=== PATIENT | female | born 1970 | race Caucasian/White ===

== ENCOUNTER 2019-07-16 08:33 | Day surgery (SDC) | payer OTHER ==
[~2019-07-16] VITALS: Ht 167.6 cm; Wt 72.6 kg
[2019-07-16] MEDS ORDERED: LIDOCAINE 2% 100 MG/5 ML UJET TP ONE (10:35)
[2019-07-16] MEDS ORDERED: MIDAZOLAM 2 MG/2 ML VIAL ONE (10:35)
[2019-07-16] MEDS ORDERED: fentaNYL 0.05 MG/ML VIAL ONE (10:35)
[2019-07-16] MEDS ORDERED: MIDAZOLAM 2 MG/2 ML VIAL IVP ONE (10:43)
[2019-07-16] MEDS ORDERED: fentaNYL 0.05 MG/ML VIAL IVP ONE (10:45)
== END 2019-07-16 12:15 | disposition home or self-care (01) ==
LOC: MOR 08:33 → MMU 08:33 → MOR 12:15
PROVIDERS: ATTEND Internal Medicine Gastroenterology
DX: Z12.11 Encounter for screening for malignant neoplasm of colon (principal); D12.5 Benign neoplasm of sigmoid colon; D12.4 Benign neoplasm of descending colon; K21.0 Gastro-esophageal reflux disease with esophagitis; K57.30 Diverticulosis of large intestine without perforation or abscess without bleeding; F17.210 Nicotine dependence, cigarettes, uncomplicated
CPT/HCPCS: 43235; 45380; J2250; J3010

== ENCOUNTER 2022-08-22 08:44 | Emergency (ER) | payer OTHER ==
[~2022-08-22] VITALS: Ht 167.6 cm; Wt 72.6 kg
[2022-08-22 08:51] VITALS: BP 110/73
[2022-08-22] MEDS ORDERED: KETOROLAC 30 MG/ML VIAL IM ONE (09:10)
--- NOTE | 2022-08-22 09:13 | NUR ---
Covid and flu swabs dropped off at lab.
[2022-08-22] MEDS ORDERED: IBUP-2213 PO (10:27)
[2022-08-22] MEDS ORDERED: AMOX-1230 PO (10:27)
[2022-08-22 10:38] VITALS: BP 110/73
--- NOTE | 2022-08-22 10:38 | NUR ---
Patient discharged with v/s stable. Written and verbal after care instructions given and explained. Patient verbalized understanding. Ambulatory with steady gait. All questions addressed prior to discharge. Advised to follow up with PMD.
== END 2022-08-22 10:38 | disposition home or self-care (01) ==
LOC: MED 08:44
DX: J18.9 Pneumonia, unspecified organism (principal); J11.1 Influenza due to unidentified influenza virus with other respiratory manifestations; Z20.822 Contact with and (suspected) exposure to COVID-19; F17.210 Nicotine dependence, cigarettes, uncomplicated; Z79.1 Long term (current) use of non-steroidal anti-inflammatories (NSAID); Z79.2 Long term (current) use of antibiotics
CPT/HCPCS: 71045; 87426; 87804; 93005; 96372; 99285; J1885

== ENCOUNTER 2022-09-16 10:48 | Emergency (ER) | payer OTHER ==
[~2022-09-16] VITALS: Ht 167.6 cm; Wt 73.0 kg
[~2022-09-16 10:48] MED LIST: AMOX-1230 PO; IBUP-2213 PO
[2022-09-16 11:00] VITALS: BP 113/75
--- NOTE | 2022-09-16 11:06 | NUR ---
51/F WALKED IN C/O DYSURIA AND FREQUENCY X 1 WK. PT DENIES HEMATURIA, FLANK PAIN OR FEVER. AFEBRILE AT TRIAGE.AAO4, AMBULATORY, VITALS STABLE. Denies PMH NKA
[2022-09-16 11:22] LABS: BILIRUBIN,URINE NEGATIVE (NEGATIVE); BLOOD, URINE 1+ (NEGATIVE); COLOR,URINE YELLOW (YELLOW); LEUKOCYTE ESTERASE ,URINE 2+ (NEGATIVE); NITRITE, URINE NEGATIVE (NEGATIVE); PH,URINE 6.5 (5.0-9.0); UGLUCOSE NEGATIVE (NEGATIVE)
[2022-09-16 11:25] LABS: APPEARANCE,URINE HAZY (CLEAR)
[2022-09-16] MEDS ORDERED: NITR100C7 PO (11:58)
[2022-09-16] MEDS ORDERED: IBUP-1842 PO (11:58)
== END 2022-09-16 12:08 | disposition home or self-care (01) ==
LOC: MED 10:48
DX: N39.0 Urinary tract infection, site not specified (principal); Z79.899 Other long term (current) drug therapy; Z90.710 Acquired absence of both cervix and uterus
CPT/HCPCS: 81001; 87086; 99283

== ENCOUNTER 2022-09-26 08:16 | Emergency (ER) | payer OTHER ==
[~2022-09-26] VITALS: Ht 167.6 cm; Wt 74.8 kg
[~2022-09-26 08:16] MED LIST changes: +IBUP-1842 PO; +NITR100C7 PO
[2022-09-26 08:29] VITALS: BP 112/52
--- NOTE | 2022-09-26 08:45 | NUR ---
MD at bedside to evaluate the patient
[2022-09-26] MEDS ORDERED: KETOROLAC 60 MG/2 ML VIAL IM ONE (08:50)
[2022-09-26 09:00] LABS: BILIRUBIN,URINE NEGATIVE (NEGATIVE); BLOOD, URINE 3+ (NEGATIVE); LEUKOCYTE ESTERASE ,URINE NEGATIVE (NEGATIVE); NITRITE, URINE NEGATIVE (NEGATIVE); PH,URINE 6.5 (5.0-9.0); UGLUCOSE NEGATIVE (NEGATIVE)
[2022-09-26 09:07] LABS: COLOR,URINE SLIGHT BLOODY (YELLOW)
[2022-09-26 09:08] LABS: APPEARANCE,URINE SLIGHTLY CLOUDY (CLEAR)
[2022-09-26 09:41] LABS: RBC,URINE 11-20 (MOD) /HPF (0-5); WBC,URINE 0-5 /HPF (0-5)
[2022-09-26] MEDS ORDERED: IBUP-2213 PO (09:54)
[2022-09-26] MEDS ORDERED: FLUC150T PO (09:54)
--- NOTE | 2022-09-26 10:06 | NUR ---
Patient discharged with v/s stable. Written and verbal after care instructions given and explained. Patient alert, oriented and verbalized understanding of instructions. Ambulatory with steady gait. All questions addressed prior to discharge. ID band removed. Patient advised to follow up with PMD. Rx of FLUCONAZOLE, IBUPROFEN given. Opportunity to ask questions provided and answered.
--- NOTE | 2022-09-26 10:25 | NUR ---
The patient's care was reviewed and supervised by RORY MORGAN RN.
== END 2022-09-26 10:05 | disposition home or self-care (01) ==
LOC: MED 08:16
DX: R10.30 Lower abdominal pain, unspecified (principal); R30.0 Dysuria; F17.200 Nicotine dependence, unspecified, uncomplicated; Z90.710 Acquired absence of both cervix and uterus; Z79.1 Long term (current) use of non-steroidal anti-inflammatories (NSAID); Z79.2 Long term (current) use of antibiotics
CPT/HCPCS: 81001; 87086; 96372; 99283; J1885

== ENCOUNTER 2022-11-04 10:25 | Emergency (ER) | payer OTHER ==
[~2022-11-04] VITALS: Ht 167.6 cm; Wt 75.7 kg
[~2022-11-04 10:25] MED LIST changes: +FLUC150T PO
[2022-11-04 10:34] VITALS: BP 132/67
--- NOTE | 2022-11-04 11:01 | NUR ---
Patient being evaluated by physician at bedside.
[2022-11-04] MEDS ORDERED: KETOROLAC 15 MG/ML VIAL IM ONE (11:10)
[2022-11-04] MEDS ORDERED: IBUP-2213 PO (11:14)
[2022-11-04] MEDS ORDERED: BENZ100C6 PO (11:14)
[2022-11-04 11:34] VITALS: BP 116/79
--- NOTE | 2022-11-04 11:34 | NUR ---
Patient discharged with v/s stable. Written and verbal after care instructions given. Patient alert, oriented and verbalized understanding of instructions. Ambulatory with steady gait. All questions addressed prior to discharge. ID band removed. Patient advised to follow up with PMD. Rx of Benzonatate and Ibuprofen given. Opportunity to ask questions provided and answered.
--- NOTE | 2022-11-04 11:39 | NUR ---
The patient's care was reviewed and supervised by [facility], RN.
== END 2022-11-04 11:34 | disposition home or self-care (01) ==
LOC: MED 10:25
DX: J06.9 Acute upper respiratory infection, unspecified (principal); J02.9 Acute pharyngitis, unspecified; F17.200 Nicotine dependence, unspecified, uncomplicated; Z79.899 Other long term (current) drug therapy; Z90.710 Acquired absence of both cervix and uterus
CPT/HCPCS: 96372; 99283; J1885